=== PATIENT | female | born 1955 | race Caucasian/White ===

== ENCOUNTER 2024-08-09 07:44 | Emergency (ER) | payer OTHER, MEDICARE, BC, SELFPAY ==
[2024-08-09] VITALS (15 sets, daily range): BP systolic 92–125; BP diastolic 57–79; PULSE 91–114; TEMP 36.6; O2SAT 98–100; BMI 27.4
--- NOTE | 2024-08-09 08:03 | ECG_ITS ---
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
--- NOTE | 2024-08-09 08:06 | XR_ITS ---
[address] [address] Patient Name: SUHAS CORREA MRN: [id number] date: 1955 Sex: F Assigned Patient Location: ED.MAIN Current Patient Location: ER Accession/Order Number: [id number] Exam Date: 08/09/2024 09:05 Report Date: 08/09/2024 09:52 At the request of: MITA REILLY Procedure: XR knee RT 3V PROCEDURE: XR knee RT 3V, XR femur RT 2V COMPARISON: None. HISTORY: pain FINDINGS: BONES:No acute fracture or dislocation. Mild degenerative changes of the hip with marginal osteophyte formation. SOFT TISSUES:Negative. No visible soft tissue swelling. EFFUSION:None visible. OTHER: Negative. XR/XR knee RT 3V IMPRESSION: No acute fracture of the knee or femur Electronically authenticated by: VICTORINO SALAZAR Date: 08/09/2024 09:52
--- NOTE | 2024-08-09 08:06 | XR_ITS ---
[address] [address] Patient Name: SUHAS CORREA MRN: [facility]:[id number] date: 1955 Sex: F Assigned Patient Location: ED.MAIN Current Patient Location: ER Accession/Order Number: [id number] Exam Date: 08/09/2024 09:05 Report Date: 08/09/2024 09:52 At the request of: MITA REILLY Procedure: XR femur RT 2V PROCEDURE: XR knee RT 3V, XR femur RT 2V COMPARISON: None. HISTORY: pain FINDINGS: BONES:No acute fracture or dislocation. Mild degenerative changes of the hip with marginal osteophyte formation. SOFT TISSUES:Negative. No visible soft tissue swelling. EFFUSION:None visible. OTHER: Negative. XR/XR femur RT 2V IMPRESSION: No acute fracture of the knee or femur Electronically authenticated by: VICTORINO SALAZAR Date: 08/09/2024 09:52
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
[2024-08-09 08:18] LABS: Basophils Absolute Auto 0.1 10^3/uL (0.0-0.1); Basophils Percent Auto 0.8 % (0.2-2.0); Eosinophils Absolute Auto 0.1 10^3/uL (0.0-0.7); Hemoglobin 12.5 g/dL (12.0-16.0); Immature Granulocytes Pct Auto 0.8 % (0.0-0.5); Lymphocytes Absolute Auto 2.3 10^3/uL (1.2-3.8); Lymphocytes Percent Auto 18.1 % (20.5-60.0); Mean Corpuscular HGB Conc 32.1 g/dL (29.9-35.2); Mean Corpuscular Hemoglobin 28.6 pg (26.7-34.0); Mean Corpuscular Volume 89.2 fL (81.0-99.0); Mean Platelet Volume 10.2 fL (9.5-13.5); Monocytes Absolute Auto 1.1 10^3/uL (0.3-0.8); Monocytes Percent Auto 8.2 % (1.7-12.0); Neutrophils Absolute Auto 9.1 10^3/uL (1.4-6.5); Neutrophils Percent Auto 71.1 % (43.0-75.0); Platelet Count 265 10^3/uL (150-450); Red Blood Count 4.37 10^6/uL (4.20-5.40); Red Cell Distribution Width 13.8 % (11.0-15.0); White Blood Count 12.7 10^3/uL (4.0-11.0)
--- NOTE | 2024-08-09 08:27 | PC.NURSE ---
pt wanting to get up and use bathroom. while trying to get out of bed, pt felt dizzy and was very unsteady on her feet. in room as witness and help this RN get pt back to bed. pt needed 3 people to assist her back to bed safely d/t pt weakness. informed dr wu
[2024-08-09] MEDS: KETOROLAC TROMETHAMINE 30 MG/ML VIAL 15 MG IVP (08:30)
[2024-08-09] MEDS: ORPHENADRINE 60 MG/ 2 ML VIAL 30 MG IV (08:30)
[2024-08-09 08:38] LABS: Alanine Aminotransferase 18 U/L (14-59); Albumin Globulin Ratio 0.8; Albumin Level 3.3 g/dL (3.4-5.0); Alkaline Phosphatase 54 U/L (46-116); Anion Gap 17.4; Aspartate Amino Transferase 12 U/L (15-37); BUN Creatinine Ratio 24.7; Bilirubin Total 0.6 mg/dL (0.2-1.0); Calcium 8.9 mg/dL (8.5-10.1); Carbon Dioxide 23.5 mmol/L (21.0-32.0); Chloride 102 mmol/L (98-107); Estimated GFR (African America >60 (>=60 mL/min/1.73m^2); Estimated GFR (Non-African Ame 60 (>=60 mL/min/1.73m^2); Globulin 4.2 g/dL; Glucose 227 mg/dL (74-106); Potassium 3.9 mmol/L (3.5-5.1); Sodium 139 mmol/L (136-145); Total Protein 7.5 g/dL (6.4-8.2)
[2024-08-09 08:42] LABS: Troponin I High Sensitivity 5.8 pg/mL (4.0-51.3)
[2024-08-09] MEDS: MORPHINE SULFATE 2 MG/ML SYRINGE IV ×2 (09:47→10:42)
[2024-08-09] MEDS: 0.9 % SODIUM CHLORIDE 1,000 ML 1000 ML IV (09:47)
[2024-08-09] MEDS: TRANEXAMIC ACID 1,000 MG in 0.9 % SODIUM CHLORIDE 100 ML 440 MG IV (09:56)
== END 2024-08-09 11:03 | disposition short-term general hospital (02) ==
PROVIDERS: Emergency Provider Emergency Medicine; PCP Nurse Practitioner Family
DX: S36.039A Unspecified laceration of spleen, initial encounter (principal); S20.219A Contusion of unspecified front wall of thorax, initial encounter; S80.12XA Contusion of left lower leg, initial encounter; R58 Hemorrhage, not elsewhere classified; V43.53XA Car driver injured in collision with pick-up truck in traffic accident, initial encounter
CPT/HCPCS: 36415; 36430; 70450; 71275; 72125; 73552; 73562; 74177; 80053; 84484; 85025; 86850; 86900; 86901; 86923; 93005; 96374; 96375; 96376; 99285; J1885; J2270; J2360; P9016; Q9967